=== PATIENT | female | born 1965 | race Caucasian/White ===

== ENCOUNTER 2016-08-04 11:54 | Emergency (ER) | payer BC ==
[2016-08-04 12:00] VITALS: BP 143/75
--- NOTE | 2016-08-04 12:19 | EDM.PDOC ---
{null, ED HPI GENERAL MEDICAL PROBLEM - General Chief Complaint: ENT Problem Stated Complaint: STREP THROAT Time Seen by Provider: 08/04/16 12:08 Source of Information: Reports: Patient History Limitations: Reports: No Limitations - History of Present Illness INITIAL COMMENTS - FREE TEXT/NARRATIVE: patient comes emergency Department today with complaints of a sore throat for the past 3 days. 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 She has no cough. She has had fever and chills. She has no shortness of breath. She is able to eat and drink although it is somewhat painful. Has no shortness of breath chest pain or palpitations. Has been taking Tylenol for pain. she feels that the glands in her neck are quite swollen. Throat Pain Score (Numeric/FACES): 8 - Related Data Allergies Allergy/AdvReac Type Severity Reaction Status Date / Time cephalexin Allergy Rash Verified 08/04/16 12:03 Home Meds: Home Meds Albuterol [Proair HFA] 2 puff INH ASDIRECTED PRN 08/06/14 [History] Potassium Chloride [Klor-Con M20] 20 meq PO DAILY 08/06/14 [History] Calcium Carbonate [Calcium] 500 mg PO DAILY 12/25/15 [History] Cholecalciferol (Vitamin D3) [Vitamin D3] 1,000 units PO DAILY 12/25/15 [History ] Iron 325 mg PO DAILY 12/25/15 [History] Levothyroxine [Levothyroxine] 112 mcg PO DAILY 12/25/15 [History] Ascorbic Acid [Vitamin C] 1,000 mg PO DAILY 01/23/16 [History] Past Medical History - Past Health History Medical/Surgical History: Denies Medical/Surgical History HEENT History: Reports: None Cardiovascular History: Reports: None Respiratory History: Reports: None Gastrointestinal History: Reports: None Genitourinary History: Reports: None 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 Musculoskeletal History: Reports: None Neurological History: Reports: None Psychiatric History: Reports: Anxiety Endocrine/Metabolic History: Reports: Other (See Below) Other Endocrine/Metabolic History: thyroid removed Hematologic History: Reports: None Immunologic History: Reports: None Oncologic (Cancer) History: Reports: Thyroid Dermatologic History: Reports: None - Infectious Disease History Infectious Disease History: Reports: None - Past Surgical History Head Surgeries/Procedures: Reports: None Cardiovascular Surgical History: Reports: None GI Surgical History: Reports: None Female Surgical History: Reports: None Endocrine Surgical History: Reports: Thyroidectomy Neurological Surgical History: Reports: None Musculoskeletal Surgical History: Reports: None Social & Family History - Family History Family Medical History: Noncontributory - Tobacco Use Smoking Status *Q: Never Smoker Second Hand Smoke Exposure: No - Caffeine Use Caffeine Use: Reports: Coffee - Alcohol Use Days Per Week of Alcohol Use: 0 - Recreational Drug Use Recreational Drug Use: No ED ROS ENT - Review of Systems Review Of Systems: ROS reveals no pertinent complaints other than HPI. ED EXAM, ENT - Physical Exam Exam: See Below Exam Limited By: No Limitations General Appearance: Alert, WD/WN, No Apparent Distress Eye Exam: Bilateral Eye: Normal Inspection Ears: Normal External Exam, Normal TMs Nose: Clear Rhinorrhea Mouth/Throat: Normal Gums, Normal Teeth, Muffled Voice, Throat Pain, Tonsillar Exudates, Tonsillar Swelling. No: Drooling, Hoarse Voice, Lip Ulcers, Oral Ulcers, Peritonsillar Mass, Pharyngeal Erythema, Throat Swelling, Tongue Swelling, Uvular Deviation, Uvular Edema Head: Atraumatic, Normocephalic Neck: Lymphadenopathy (L), Lymphadenopathy (R) Respiratory/Chest: No Respiratory Distress, Lungs Clear, Normal Breath Sounds Cardiovascular: Normal Peripheral Pulses, Regular Rate, Rhythm (Female) Exam: Deferred Rectal (Female) Exam: Deferred Neurological: Alert, Oriented, Normal Cognition Psychiatric: Normal Affect, Normal Mood Skin: Warm, Dry, Intact, Normal Color, No Rash Course - Vital Signs Last Recorded V/S: Last Vital Signs Temp 37.1 C 08/04/16 11:59 Pulse 98 08/04/16 11:59 Resp 18 08/04/16 11:59 BP 143/75 H 08/04/16 11:59 Pulse Ox 98 08/04/16 11:59 - Orders/Labs/Meds Labs: Microbiology 08/04/16 12:09 Throat Group A Streptococcus Rapid Screen - Final Positive Strep A Screen - Re-Assessments/Exams Free Text/Narrative Re-Assessment/Exam: 08/04/16 12:20 relay the results of an positive strep screen to the patient. She should have 24 -hour antibiotic before her kids are able to come back to daycare. Discharge instructions as below were explained to the patient she was comfortable with this plan and her questions were answered. Departure - Departure Time of Disposition: 12:21 Disposition: Home, Self-Care 01 Condition: good Clinical Impression: Strep pharyngitis - Discharge Information Instructions: Strep Throat, [id number] Forms: ED Department Discharge Additional Instructions: Tylenol and/or ibuprofen as needed for pain fever or discomfort. Push oral fluids over the next couple days. May try warm salt water gargles to assist with Throat pain. 1 teaspoon of honey as needed for throat pain as well. Amoxicillin one tablet twice a day for the next 10 days take till gone no matter what. Decadron 8 mg one-time dose to help with inflammation and pain of the throat. Return to emergency Department if any new or worsening symptoms. Recheck with her primary care provider in the next 4-6 days if not improving sooner if worse. - Assessment/Plan Assessment:: Strep pharyngitis Plan: Tylenol and/or ibuprofen as needed for pain fever or discomfort. Push oral fluids over the next couple days. May try warm salt water gargles to assist with Throat pain. 1 teaspoon of honey as needed for throat pain as well. Amoxicillin one tablet twice a day for the next 10 days take till gone no matter what. Decadron 8 mg one-time dose to help with inflammation and pain of the throat. Return to emergency Department if any new or worsening symptoms. Recheck with her primary care provider in the next 4-6 days if not improving sooner if worse. }
== END 2016-08-04 12:25 | disposition home or self-care (01) ==
LOC: DL.ED 11:54
DX: J02.0 Streptococcal pharyngitis (principal); F41.9 Anxiety disorder, unspecified; Z88.1 Allergy status to other antibiotic agents; Z79.899 Other long term (current) drug therapy
CPT/HCPCS: 87430; 99283

== ENCOUNTER 2017-12-03 22:17 | Emergency (ER) | payer BC ==
[2017-12-03] MEDS ORDERED: Albuterol 6.7 GM Inhaler INH ONE ×2 (22:18→23:00)
[2017-12-03 22:23] VITALS: BP 161/84
[2017-12-03] MEDS ORDERED: Benzonatate 100 MG Cap PO ONE (22:56)
[2017-12-03] MEDS ORDERED: Albuterol/Ipratropium 3.0-0.5 MG/3 ML Neb Soln NEB ONE (22:56)
[2017-12-03] MEDS ORDERED: predniSONE 20 MG Tab PO ONE (22:56)
--- NOTE | 2017-12-03 23:06 | EDM.PDOC ---
ED HPI GENERAL MEDICAL PROBLEM - General Chief Complaint: General Stated Complaint: CHEST COLD [id number] Time Seen by Provider: 12/03/17 22:50 Source of Information: Reports: Patient History Limitations: Reports: No Limitations - History of Present Illness INITIAL COMMENTS - FREE TEXT/NARRATIVE: cough x 2 days, No fever or chills. Cough dry non productive. Throat sore from coughing. Similar hx this time last year. States tried inhaler on time, mild relief but inhaler . Generalized Pain Score (Numeric/FACES): 8 - Related Data Allergies Allergy/AdvReac Type Severity Reaction Status Date / Time cephalexin Allergy Rash Verified 12/03/17 22:23 Home Meds: Home Meds Albuterol [Proair HFA] 2 puff INH ASDIRECTED PRN 08/06/14 [History] Potassium Chloride [Klor-Con M20] 20 meq PO DAILY 08/06/14 [History] Calcium Carbonate [Calcium] 500 mg PO DAILY 12/25/15 [History] Cholecalciferol (Vitamin D3) [Vitamin D3] 1,000 units PO DAILY 12/25/15 [History ] Iron 325 mg PO DAILY 12/25/15 [History] Levothyroxine 112 mcg PO DAILY 12/25/15 [History] Past Medical History - Past Health History Medical/Surgical History: Denies Medical/Surgical History HEENT History: Reports: None Cardiovascular History: Reports: None Respiratory History: Reports: None Gastrointestinal History: Reports: None Genitourinary History: Reports: None 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 Musculoskeletal History: Reports: None Neurological History: Reports: None Psychiatric History: Reports: Anxiety Endocrine/Metabolic History: Reports: Other (See Below) Other Endocrine/Metabolic History: thyroid removed Hematologic History: Reports: None Immunologic History: Reports: None Oncologic (Cancer) History: Reports: Thyroid Dermatologic History: Reports: None - Infectious Disease History Infectious Disease History: Reports: None - Past Surgical History Head Surgeries/Procedures: Reports: None Cardiovascular Surgical History: Reports: None GI Surgical History: Reports: None Female Surgical History: Reports: None Endocrine Surgical History: Reports: Thyroidectomy Neurological Surgical History: Reports: None Musculoskeletal Surgical History: Reports: None Social & Family History - Family History Family Medical History: Noncontributory - Tobacco Use Smoking Status *Q: Never Smoker Second Hand Smoke Exposure: No - Caffeine Use Caffeine Use: Reports: Coffee - Recreational Drug Use Recreational Drug Use: No ED ROS GENERAL - Review of Systems Review Of Systems: ROS reveals no pertinent complaints other than HPI. ED EXAM, GENERAL - Physical Exam Exam: See Below Exam Limited By: No Limitations General Appearance: Alert, Mild Distress Eye Exam: Bilateral Eye: EOMI Ears: Normal External Exam, Normal TMs Nose: Normal Inspection Throat/Mouth: Normal Inspection. No: Normal Voice (haorse) Head: Atraumatic, Normocephalic Neck: Normal Inspection Respiratory/Chest: No Respiratory Distress, Lungs Clear, Decreased Breath Sounds , Other (frequent dry bronchial cough.) Cardiovascular: Normal Peripheral Pulses, Regular Rate, Rhythm GI/Abdominal: Normal Bowel Sounds Neurological: Alert, Oriented Skin Exam: Warm, Dry, Intact, Normal Color Course - Vital Signs Last Recorded V/S: Last Vital Signs Temp 98 F 12/03/17 22:20 Pulse 80 12/03/17 22:20 Resp 16 12/03/17 22:20 BP 161/84 H 12/03/17 22:20 Pulse Ox 98 12/03/17 22:20 - Orders/Labs/Meds Orders: Active Orders 24 hr Category Date Time Status RT Aerosol Therapy [RC] ASDIRECTED Care 12/03/17 22:56 Active Meds: Medications Discontinued Medications Generic Name Dose Route Start Last Admin Trade Name Artemio PRN Reason Stop Dose Admin Albuterol Confirm 12/03/17 23:00 12/03/17 23:04 Proventil Hfa Administered 12/03/17 23:01 Not Given Dose 6.7 gm INH .STK-MED ONE Albuterol/Ipratropium 3 ml 12/03/17 22:56 12/03/17 23:05 Duoneb 3.0-0.5 Mg/3 Ml NEB 12/03/17 22:57 3 ml ONETIME ONE Administration Benzonatate 200 mg 12/03/17 22:56 12/03/17 23:04 Tessalon Perles PO 12/03/17 22:57 200 mg ONETIME ONE Administration Prednisone 20 mg 12/03/17 22:56 12/03/17 23:04 Prednisone PO 12/03/17 22:57 20 mg ONETIME ONE Administration Departure - Departure Time of Disposition: 23:05 Disposition: Home, Self-Care 01 Condition: Good Clinical Impression: Bronchitis URI (upper respiratory infection) Qualifiers: URI type: unspecified viral URI Qualified Code(s): J06.9 - Acute upper respiratory infection, unspecified - Discharge Information *PRESCRIPTION DRUG MONITORING PROGRAM REVIEWED*: Not Applicable Instructions: Cough, Adult, [id number] Forms: ED Department Discharge Additional Instructions: humidification albuterol inhaler 2 puffs every 4 hours as needed Tesselon pearles 200mg every 8 hours as needed for cough #20 prednisone 20mg daily x 3 then 10 mg daily x3 follow up if symptoms worsen muccinex or robitussin per package label as needed to aid in loosening any mucus - My Orders Last 24 Hours: My Active Orders 12/03/17 22:56 RT Aerosol Therapy [RC] ASDIRECTED - Assessment/Plan Last 24 Hours: My Active Orders 12/03/17 22:56 RT Aerosol Therapy [RC] ASDIRECTED
== END 2017-12-03 23:14 | disposition home or self-care (01) ==
LOC: DL.ED 22:17
DX: J40 Bronchitis, not specified as acute or chronic (principal); J06.9 Acute upper respiratory infection, unspecified; Z88.1 Allergy status to other antibiotic agents; Z79.899 Other long term (current) drug therapy
CPT/HCPCS: 94640; 99283; A9270-GY; J7620-GY

== ENCOUNTER → 2018-08-07 | Outpatient (CLI) | payer BC | LOC: DL.CLIN 09:42 | PROVIDERS: ATTEND Nurse Practitioner | DX: N95.9 Unspecified menopausal and perimenopausal disorder (principal) | CPT/HCPCS: 83001; 83002; 84144 ==

== ENCOUNTER 2019-01-18 18:24 | Emergency (ER) | payer BC ==
[2019-01-18 19:17] VITALS: BP 147/76; PULSE 78
--- NOTE | 2019-01-18 20:14 | EDM.PDOC ---
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) - Related Data Allergies Allergy/AdvReac Type Severity Reaction Status Date / Time cephalexin Allergy Rash Verified 12/03/17 22:23 Home Meds: Home Meds Albuterol [Proair HFA] 2 puff INH ASDIRECTED PRN 08/06/14 [History] Potassium Chloride [Klor-Con M20] 20 meq PO DAILY 08/06/14 [History] Calcium Carbonate [Calcium] 500 mg PO DAILY 12/25/15 [History] Cholecalciferol (Vitamin D3) [Vitamin D3] 1,000 units PO DAILY 12/25/15 [History ] Iron 325 mg PO DAILY 12/25/15 [History] Levothyroxine 112 mcg PO DAILY 12/25/15 [History] Calcitriol 1 cap PO ASDIRECTED 01/18/19 [History] Calcitriol 2 cap PO ASDIRECTED 01/18/19 [History] Methocarbamol 500 mg PO TID PRN 01/18/19 [History] hydroCHLOROthiazide [Hydrochlorothiazide] 12.5 mg PO DAILY 01/18/19 [History] Past Medical History - Past Health History Medical/Surgical History: Denies Medical/Surgical History HEENT History: Reports: None Cardiovascular History: Reports: Hypertension Respiratory History: Reports: SOB Gastrointestinal History: Reports: None Genitourinary History: Reports: None 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 Musculoskeletal History: Reports: Back Pain, Chronic Neurological History: Reports: None Psychiatric History: Reports: Anxiety Endocrine/Metabolic History: Reports: Other (See Below) Other Endocrine/Metabolic History: thyroid removed Hematologic History: Reports: None Immunologic History: Reports: None Oncologic (Cancer) History: Reports: Thyroid Dermatologic History: Reports: None - Infectious Disease History Infectious Disease History: Reports: None - Past Surgical History Head Surgeries/Procedures: Reports: None Cardiovascular Surgical History: Reports: None Respiratory Surgical History: Reports: None GI Surgical History: Reports: None Female Surgical History: Reports: Tubal Ligation Endocrine Surgical History: Reports: Thyroidectomy Neurological Surgical History: Reports: None Social & Family History - Family History Family Medical History: Noncontributory - Tobacco Use Smoking Status *Q: Never Smoker Second Hand Smoke Exposure: No - Caffeine Use Caffeine Use: Reports: Coffee - Recreational Drug Use Recreational Drug Use: No ED ROS GENERAL - Review of Systems Review Of Systems: ROS reveals no pertinent complaints other than HPI. ED EXAM, SKIN/RASH Exam: See Below Exam Limited By: No Limitations General Appearance: Alert, No Apparent Distress Eye Exam: Bilateral Eye: EOMI Ears: Normal External Exam Nose: Normal Inspection Throat/Mouth: Normal Inspection Head: Atraumatic, Normocephalic Neck: Normal Inspection Respiratory/Chest: No Respiratory Distress, Lungs Clear Cardiovascular: Normal Peripheral Pulses, Regular Rate, Rhythm Extremities: Normal Range of Motion. No: Joint Swelling, Increased Warmth, Redness Neurological: Alert, Normal Cognition Psychiatric: Anxious Skin: Warm, Dry, Other (barely visible pinpoint puncture mid pad right index finger.) Location, Skin: Head, Upper Extremity, Right (3rd finger) Associated features: No: Warmth, Tenderness, Swelling Course - Vital Signs Last Recorded V/S: Last Vital Signs Temp 98.3 F 01/18/19 19:15 Pulse 78 01/18/19 19:15 Resp 18 01/18/19 19:15 BP 147/76 H 01/18/19 19:15 Pulse Ox 98 01/18/19 19:15 Departure - Departure Time of Disposition: 20:11 Disposition: Home, Self-Care 01 Condition: Good Clinical Impression: Cat scratch - Discharge Information *PRESCRIPTION DRUG MONITORING PROGRAM REVIEWED*: Not Applicable *COPY OF PRESCRIPTION DRUG MONITORING REPORT IN PATIENT JOSHUA: Not Applicable Instructions: Puncture Wound, [id number] Forms: ED Department Discharge Additional Instructions: follow up in am to check on tetnus status wash area twice daily with soap and water follow up if notice redness or swelling to area
== END 2019-01-18 20:17 | disposition home or self-care (01) ==
LOC: DL.ED 18:24
DX: S60.412A Abrasion of right middle finger, initial encounter (principal); I10 Essential (primary) hypertension; Z88.1 Allergy status to other antibiotic agents; Z79.899 Other long term (current) drug therapy; Z98.51 Tubal ligation status; W55.03XA Scratched by cat, initial encounter
CPT/HCPCS: 99282

== ENCOUNTER 2020-11-20 05:54 | Emergency (ER) | payer BC ==
[2020-11-20 06:04] VITALS: BP 142/80; PULSE 69
[2020-11-20] MEDS ORDERED: predniSONE 20 MG Tab PO ONE (06:12)
[2020-11-20] MEDS ORDERED: Famotidine 20 MG Tab PO ONE (06:12)
[2020-11-20] MEDS ORDERED: diphenhydrAMINE 25 MG Tab PO ONE (06:12)
--- NOTE | 2020-11-20 06:14 | EDM.PDOC ---
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 last dose 930pm, woke this morning with eyes swollen No difficulty breathing No tongue swelling. No previous reactions. - Related Data Allergies Allergy/AdvReac Type Severity Reaction Status Date / Time cephalexin Allergy Rash Verified 11/20/20 06:04 Home Meds: Home Meds Albuterol [Proair HFA] 2 puff INH ASDIRECTED PRN 08/06/14 [History] Potassium Chloride [Klor-Con M20] 20 meq PO DAILY 08/06/14 [History] Calcium Carbonate [Calcium] 500 mg PO DAILY 12/25/15 [History] Cholecalciferol (Vitamin D3) [Vitamin D3] 1,000 units PO DAILY 12/25/15 [History] Iron 325 mg PO DAILY 12/25/15 [History] Levothyroxine 112 mcg PO DAILY 12/25/15 [History] calcitrioL [Calcitriol] 1 cap PO ASDIRECTED 01/18/19 [History] calcitrioL [Calcitriol] 2 cap PO ASDIRECTED 01/18/19 [History] hydroCHLOROthiazide [Hydrochlorothiazide] 12.5 mg PO DAILY 01/18/19 [History] methocarbamoL [Methocarbamol] 500 mg PO TID PRN 01/18/19 [History] Past Medical History - Past Health History Medical/Surgical History: Denies Medical/Surgical History HEENT History: Reports: None Cardiovascular History: Reports: Hypertension Respiratory History: Reports: SOB Gastrointestinal History: Reports: None Genitourinary History: Reports: None NNP History: Reports: 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 Musculoskeletal History: Reports: Back Pain, Chronic Neurological History: Reports: None Psychiatric History: Reports: Anxiety Endocrine/Metabolic History: Reports: Other (See Below) Other Endocrine/Metabolic History: thyroid removed Hematologic History: Reports: None Immunologic History: Reports: None Oncologic (Cancer) History: Reports: Thyroid Dermatologic History: Reports: None - Infectious Disease History Infectious Disease History: Reports: None - Past Surgical History Head Surgeries/Procedures: Reports: None Cardiovascular Surgical History: Reports: None Respiratory Surgical History: Reports: None GI Surgical History: Reports: None Female Surgical History: Reports: Tubal Ligation Endocrine Surgical History: Reports: Thyroidectomy Neurological Surgical History: Reports: None Musculoskeletal Surgical History: Reports: None Social & Family History - Family History Family Medical History: No Pertinent Family History - Tobacco Use Tobacco Use Status *Q: Never Tobacco User - Caffeine Use Caffeine Use: Reports: Coffee - Recreational Drug Use Recreational Drug Use: No ED ROS GENERAL - Review of Systems Review Of Systems: Comprehensive ROS is negative, except as noted in HPI. ED EXAM, ANIMAL BITE - Physical Exam Exam: See Below Exam Limited By: No Limitations General Appearance: Alert, No Apparent Distress Eye Exam: Bilateral Eye: EOMI, Periorbital Changes (mild swelling ), PERRL Ears: Normal External Exam, Hearing Grossly Normal Nose: Normal Inspection Throat/Mouth: Normal Inspection, Normal Oropharynx, Normal Voice, No Airway Compromise Head: Normocephalic, Facial Swelling (periorbital ) Neck: Normal Inspection Respiratory/Chest: No Respiratory Distress, Lungs Clear, Normal Breath Sounds Cardiovascular: Normal Peripheral Pulses, Regular Rate, Rhythm Extremities: Normal Inspection Neurological: Alert, Oriented, Normal Cognition Psychiatric: Normal Affect Skin Exam: Other (samll punctate area right upper forehead hairline, minimal redenss no surrounding errythema or swelling) Course - Vital Signs Last Recorded V/S: Last Vital Signs Temp 97.8 F 11/20/20 06:02 Pulse 69 11/20/20 06:02 Resp 16 11/20/20 06:02 BP 142/80 H 11/20/20 06:02 Pulse Ox 96 11/20/20 06:02 Departure - Departure Time of Disposition: 06:14 Disposition: Home, Self-Care 01 Condition: Good Clinical Impression: Insect bite Qualifiers: Encounter type: initial encounter Site of insect bite: head Site of insect bite of head: scalp Qualified Code(s): S00.06XA - Insect bite (nonvenomous) of scalp, initial encounter; W57.XXXA - Bitten or stung by nonvenomous insect and other nonvenomous arthropods, initial encounter - Discharge Information *PRESCRIPTION DRUG MONITORING PROGRAM REVIEWED*: No *COPY OF PRESCRIPTION DRUG MONITORING REPORT IN PATIENT JOSHUA: No Instructions: Bee, Wasp, or Hornet Sting, Adult Additional Instructions: benadryl 25mg every 4 hours x 24 hours then every 4 hours as needed if continued swelling pepcid 20mg daily x 3 days prednisone taper urgent follow up if increased swelling or difficulty breathing or noting any swelling of tongue monitor insect sting area follow up if increased redness swelling of area Sepsis Event Note (ED) - Evaluation Sepsis Screening Result: No Definite Risk - Focused Exam Vital Signs: Vital Signs Temp Pulse Resp BP Pulse Ox 11/20/20 06:02 97.8 F 69 16 142/80 H 96
== END 2020-11-20 06:27 | disposition home or self-care (01) ==
LOC: DL.ED 05:54
DX: S00.06XA Insect bite (nonvenomous) of scalp, initial encounter (principal); I10 Essential (primary) hypertension; Z88.1 Allergy status to other antibiotic agents; Z79.899 Other long term (current) drug therapy; W57.XXXA Bitten or stung by nonvenomous insect and other nonvenomous arthropods, initial encounter
CPT/HCPCS: 99282; A9270; J7512

== ENCOUNTER 2022-06-16 00:27 | Emergency (ER) | payer BC ==
[2022-06-16 01:32] VITALS: BP 153/81; PULSE 76
== END 2022-06-16 01:58 | disposition home or self-care (01) ==
LOC: DL.ED 00:27
DX: J06.9 Acute upper respiratory infection, unspecified (principal); I10 Essential (primary) hypertension; Z79.899 Other long term (current) drug therapy; Z88.1 Allergy status to other antibiotic agents
CPT/HCPCS: 99282; 99284

== ENCOUNTER 2024-01-01 01:28 | Emergency (ER) | payer BC, OTHER ==
[2024-01-01 01:44] VITALS: BP 147/97; PULSE 65
[2024-01-01 01:55] LABS: BASOPHILS PERCENT AUTO 0.4 % (0.0-1.0); EOSINOPHILS PERCENT AUTO 2.2 % (1.0-3.0); HEMATOCRIT 40.1 % (37.0-47.0); HEMOGLOBIN 13.4 g/dL (12.0-16.0); LYMPHOCYTES PERCENT AUTO 39.3 % (20.5-50.1); MEAN CORPUSCULAR HEMOGLOBIN 30.3 pg (27.0-34.0); MEAN CORPUSCULAR HGB CONC 33.4 g/dL (33.0-35.0); MEAN CORPUSCULAR VOLUME 90.7 fL (80-100); MONOCYTES PERCENT AUTO 7.6 % (2-8); NEUTROPHILS PERCENT AUTO 50.5 % (42.2-75.2); PLATELET COUNT,PLT 238 10^3/uL (150-450); RED BLOOD CELL COUNT 4.42 10^6/uL (4.2-5.4); WHITE BLOOD CELL COUNT,WBC 6.9 10^3/uL (5.0-10.0)
[2024-01-01 02:16] LABS: A/G RATIO 1.5; ALANINE AMINOTRANSFERASE,ALT 104 U/L (14-59); ALBUMIN 4.4 g/dL (3.4-5.0); ALKALINE PHOSPHATASE 42 U/L (46-116); ANION GAP 11.6 mEq/L (7-13); ASPARTATE AMNIOTRANSFERASE,AST 59 U/L (15-37); BILIRUBIN TOTAL 0.4 mg/dL (0.2-1.0); BLOOD UREA NITROGEN,BUN 13 mg/dL (7-18); BUN/CREATININE RATIO 10.7 (No establ ref range); CALCIUM 7.7 mg/dL (8.5-10.1); CARBON DIOXIDE,CO2 32 mmol/L (21-32); CHLORIDE,CL 98 mmol/L (98-107); CREATININE 1.21 mg/dL (0.55-1.02); GLUCOSE RANDOM 103 mg/dL (70-99); POTASSIUM,K 3.6 mmol/L (3.5-5.1); PROTEIN TOTAL,TP 7.3 g/dL (6.4-8.2); SODIUM,NA 138 mmol/L (136-145)
[2024-01-01 02:17] LABS: C-REACTIVE PROTEIN < 0.50 ng/dL (<=0.50); ESTIMATED GFR 52 mL/min (>=60)
[2024-01-01 02:19] LABS: LACTIC ACID 0.3 mmol/L (0.4-2.0)
[2024-01-01 02:31] LABS: PROTHROMBIN TIME 10.3 SEC (9.0-12.0); PTT,PARTIAL THROMBOPLSTIN TIME 33.4 SEC (22.0-34.0)
[2024-01-01] MEDS: Iopamidol 612 MG/ML 100 ML Bottle IVPUSH ONE (02:31)
[2024-01-01] MEDS: Calcium Gluconate 10% 1 GM/10 ML SDV IVPUSH ONE (03:09)
[2024-01-01] MEDS: Potassium Chloride 10 MEQ Tab.ER PO ONE (03:41)
[2024-01-01] MEDS: Triamcinolone Acetonide 40 MG/ML 1 ML SDV INJECT ONE (06:15)
== END 2024-01-01 06:35 | disposition home or self-care (01) ==
LOC: DL.ED 01:28
DX: R04.2 Hemoptysis (principal); R05.9 Cough, unspecified; E89.0 Postprocedural hypothyroidism; E83.51 Hypocalcemia; I10 Essential (primary) hypertension; Z88.1 Allergy status to other antibiotic agents; Z79.899 Other long term (current) drug therapy
CPT/HCPCS: 36415; 70491; 71045; 74019; 80053; 83605; 84443; 85025; 85610; 85730; 86140; 87081; 87430; 96372; 96374; 99284; 99285-25; A9270-GY; J0612; J3301; Q9967

== ENCOUNTER 2024-04-26 00:55 | Emergency (ER) | payer OTHER ==
[2024-04-26] MEDS: Take Home: Azithromycin 250 MG, 2 Tab Pack PO ONE (01:45)
[2024-04-26 01:52] VITALS: BP 133/82; PULSE 58
== END 2024-04-26 01:50 | disposition home or self-care (01) ==
LOC: DL.ED 00:55
DX: J32.9 Chronic sinusitis, unspecified (principal); I10 Essential (primary) hypertension; Z88.1 Allergy status to other antibiotic agents; Z79.899 Other long term (current) drug therapy; Z79.890 Hormone replacement therapy
CPT/HCPCS: 99283; A9270